=== PATIENT | male | born 1995 | race Two or more races ===

== ENCOUNTER 2023-09-22 11:34 | Emergency (ER) | payer SELFPAY ==
[2023-09-22 11:58] VITALS: BP 145/94; PULSE 124; RESP 20; TEMP 38.7; O2SAT 97; BMI 29.9
--- NOTE | 2023-09-22 11:58 | ED_ITS ---
HPI - URI/Sore Throat General Chief Complaint: Upper Respiratory Symptoms Stated Complaint: Sore throat Time Seen by Provider: 09/22/23 12:02 Source: patient Mode of arrival: ambulatory Limitations: no limitations History of Present Illness HPI Narrative: 27 year old male with no past medical history presents to the emergency department with flu like symptoms starting on Wednesday with difficulty swallowing. Denies difficulty with tolerating secretions, change in phonation, change in ROM. States he was seen in an urgent care setting several days ago with no diagnosis Related Data Previous Rx's Medication Instructions Recorded penicillin V potassium 500 mg 500 mg PO BID 10 days #20 tabs 09/22/23 tablet Allergies Allergy/AdvReac Type Severity Reaction Status Date / Time No Known Allergies Allergy Verified 09/22/23 12:01 Review of Systems Review of Systems: Yes all other systems are reviewed and are negative Physical Exam Vital Signs: Vital Signs: Last Vital Signs Temp 101.7 F H 09/22/23 11:58 Pulse 124 H 09/22/23 11:58 Resp 20 09/22/23 11:58 BP 145/94 H 09/22/23 11:58 Pulse Ox 97 09/22/23 11:58 O2 Del Method Room Air 09/22/23 11:58 BMI result Body Mass Index 29.9 Nursing notes and vital signs reviewed. GENERAL APPEARANCE: A&0 x 4, generally well appearing, no acute distress HENMT: Normal to inspection, atraumatic, face symmetrical. Oropharynx with 2- 3+ tonsils with exudate EYE: PERRLA, EOM intact, structures appear normal NECK: Supple without stiffness or restricted ROM. HEART: Normal rate and regular rhythm, normal S1/S2, no M/R/G LUNGS: LS CTA, moving air well. Able to speak in complete sentences. No crackles, wheezes, or rhonchi auscultated BACK: No CVAT, no obvious deformity EXTREMITIES: Moving all extremities without difficulty. Normal capillary refill. NEUROLOGICAL: Alert and oriented, moving all 4 extremities with equal strength. CN not formally tested but appearing grossly intact. Observed to ambulate with normal gait. Cognition normal SKIN: Warm and dry without any lesions, rash, or visible sores Medications Administered Discontinued Medications Generic Name Dose Route Start Last Admin Trade Name Freq PRN Reason Stop Dose Admin Acetaminophen 975 mg 09/22/23 12:01 09/22/23 12:03 Acetaminophen 325 Mg Tablet PO 09/22/23 12:02 975 mg ONCE ONE Administration Medical Decision Making Medical Decision Making MDM Narrative: Old records reviewed for previous imaging, lab studies, ECGs, and notes. Patient was assessed the emergency department with no acute distress or toxicity noted. Rapid strep negative but symptoms are consistent with strep pharyngitis. Decadron given here in the ED and Pen VK sent to pt's preferred pharmacy for management strep pharyngitis. Patient educated to take full course of antibiotics regardless of symptoms. Pt educated to return to the emergency department for worsening symptoms as we can do a throat culture to further rule out strep B, which is most likely the cause of the patient's pharyngitis. Patient is safe for discharge at this time with plan for [id number] Tylenol and/or NSAID such as ibuprofen or naproxen for fever/discomfort with do sing as per packaging. HPI, PE, diagnostics, and plan discussed with patient and family with no unanswered questions at this time. Strict return precautions given to return to the emergency department with new, worsening, or concerning emergent symptoms. Recommended to follow-up with there primary care provider in 24-48 hours for further treatment and management. 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 pyogenes GrpA JUNE Negative (Negative) Discharge Plan Discharge Clinical Impression: Strep pharyngitis Patient Disposition: Home, Self-Care Instructions: Strep Throat (ED) Additional Instructions: Your rapid strep is negative but will be sent to further evaluation as there are several strains of strep. Steroids were given in the emergency department and antibiotics were sent to your pharmacy for management of presumed strep. Prescriptions: New penicillin V potassium 500 mg tablet 500 mg PO BID 10 Days Qty: 20 0RF [place] [facility] [place] [facility] [place] [facility] [place] [facility] [place] [facility] [place] [facility] Jed Enciso [Physician] - (As needed) Stand Alone Forms: Work/School Release Print Language: [place]
[2023-09-22] MEDS: Acetaminophen 325 MG TABLET 975 MG PO (12:03)
[2023-09-22 12:48] LABS: IDNOW Serial# 08D9AD1C; Strep A Nucleic Acid Negative (Negative)
[2023-09-22] MEDS: dexAMETHasone 2 MG TABLET 10 MG PO (13:09)
[2023-09-22 13:38] LABS: Influenza A PCR NEGATIVE (Negative); Influenza B PCR NEGATIVE (Negative); Resp Syncy Virus RNA Qual PCR NEGATIVE (Negative); SARS COV2 PCR INHOUSE NEGATIVE (Negative)
== END 2023-09-22 14:06 | disposition home or self-care (01) ==
LOC: HO.ED 13:18
PROVIDERS: Nurse Practitioner Family; Emergency Provider Emergency Medicine
DX: J02.0 Streptococcal pharyngitis (principal); Z11.52 Encounter for screening for COVID-19; Z20.828 Contact with and (suspected) exposure to other viral communicable diseases
CPT/HCPCS: 0241U; 87651; 99283; J8540